=== PATIENT | male | born 1980 | race Caucasian/White ===

== ENCOUNTER → 2017-10-12 | Outpatient (CLI) | payer OTHER ==
--- NOTE | 2017-10-12 21:09 | CONS ---
CONSULTATION Consultation for sleep apnea. A 37-year-old male patient, works at the [employer]. He is morbidly obese with a BMI of 40.3. He has been having loud snoring, sleep fragmentation along with excessive tiredness and sleepiness during the day and his presentation is typical of underlying obstructive sleep apnea. He goes to bed around 8:00-10:00 p.m., gets out of bed around 4:00 am. On weekends, he sleeps at midnight and gets up in the yarder puncher hours. During the day, he feels tired and fatigued and sleepy. He has been told to stop breathing at night. He wakes up with a dry mouth. He has restlessness in the lower extremities and occasionally wakes up gasping for air. PAST MEDICAL HISTORY: Bronchial asthma, depression, acid reflux and chronic back pain. SURGICAL HISTORY: Includes tonsillectomy. DRUG ALLERGIES: Not known. He is allergic to DUST, GRASS and TREES and has CHRONIC ALLERGIC RHINITIS. OUTPATIENT MEDICATION LIST: Includes: 1. Singulair. 2. Prozac and. 3. Antacids. SOCIAL HISTORY: Does smoke 1 pack of cigarettes a day. No history of alcoholism. No history of IV drugs. FAMILY HISTORY: Positive for CVA and sleep apnea also runs in the family. REVIEW OF SYSTEMS: A 12-point review of systems was done. Constitutional shows positive weight gain, around 30-40 pounds over the past 5 years. No change in appetite. No severe chills or night sweats. No headaches. No altered mentation. No changes in memory. No cough or sputum production. No angina or palpitations. No nausea, vomiting or diarrhea. Occasional heartburn. There is occasional nocturia. No dysuria, frequency or urgency. No palpitations. No sleepwalking or sleep talking. No anxiety. Has history of depression. No claustrophobia. No sexual dysfunction. His current vitals: BP is 140/90, pulse 84, respirations 16, temperature 97.5, sats are 97% on room air. Neck size 18 inches. Weight is 281. Height is 5 feet 6 inches. GENERAL APPEARANCE: Calm comfortable. Head is atraumatic, normocephalic. Neck is short, supple. There is crowding of posterior pharynx. There is no goiter or neck masses. LUNGS: Diminished breath sounds bilaterally, otherwise clear. HEART: Sounds are regular rate and rhythm. Normal S1, S2. No S3, S4. No murmurs. ABDOMEN: Soft, nontender. No organomegaly. EXTREMITIES: No edema. No cyanosis or clubbing. NEUROLOGIC: Alert and oriented x3. No focal neurological deficits. PSYCHIATRICALLY: Positive for depression and anxiety. SKIN: Negative for wounds or ulceration. IMPRESSION: 1. Obstructive sleep apnea clinically suspected based on snoring, witnessed apneas and chronic hypersomnia and sleepiness with an [place] score of 14. 2. Obesity, BMI of 40. 3. Hypersomnia. [place] of 14. 4. Bronchial asthma. 5. Depression. 6. Acid reflux. 7. Chronic back pain. PLAN: 1. Encourage weight loss. 2. Implement good sleep hygiene measures. 3. Proceed with a polysomnogram. The patient is willing to undertake CPAP therapy if he is found to have significant obstructive sleep apnea. Will continue to follow. DESTIN / MATTN: [id number] /
== END | disposition home or self-care (01) ==
LOC: SLEEP 15:04
PROVIDERS: ATTEND Internal Medicine Critical Care Medicine
DX: E66.9 Obesity, unspecified (principal); G47.10 Hypersomnia, unspecified; J45.909 Unspecified asthma, uncomplicated; F32.9 Major depressive disorder, single episode, unspecified; K21.9 Gastro-esophageal reflux disease without esophagitis; M54.9 Dorsalgia, unspecified; G89.29 Other chronic pain; F17.210 Nicotine dependence, cigarettes, uncomplicated; Z68.41 Body mass index [BMI] 40.0-44.9, adult; Z91.09 Other allergy status, other than to drugs and biological substances; Z79.899 Other long term (current) drug therapy
CPT/HCPCS: 99211

== ENCOUNTER → 2020-12-18 | Outpatient (CLI) | payer OTHER ==
--- NOTE | 2020-12-18 22:13 | CONS ---
CONSULTATION DATE OF SERVICE: 12/18/2020 40-year-old gentleman who has been evaluated in the sleep center for possible obstructive sleep apnea-hypopnea syndrome. SLEEP SCHEDULE: The patient usual sleep schedule from 9 p.m. to 4 a.m. on weekdays and from midnight until 5 a.m. on weekends. FALLING ASLEEP: He does have problems with falling asleep, although no TV in bedroom. DURING SLEEP: He usually sleeps in the stomach position. He snores and has witnessed episodes of stopped breathing during sleep. He also wakes up with a choking, dry mouth, episodes of gasping for air, restless legs, sleep talking, sweating. The patient wakes up from sleep 3 times with nocturia. In the morning, the patient wakes up tired with difficulties paying attention, falling asleep during the day. Worry about sleep, has problem with the memory and sexual dysfunction. [place] Sleepiness Scale increased to 11. PAST MEDICAL HISTORY: Positive for hypertension, asthma, dizziness, headaches, acid reflux. PAST SURGICAL HISTORY: Tonsillectomy x2. MEDICATIONS: Glimepiride 2 mg once a day. Omeprazole 40 mg once a day. Loratadine 10 mg once a day, amlodipine 10 mg once a day. Montelukast 10 mg once a day. Losartan hydrochlorothiazide 10/25 mg once a day. Dicyclomine 20 mg once a day, Flexeril 10 mg once a day. Metformin 10 mg once a day. ProAir. SOCIAL HISTORY: Positive for smoking 1-1/2 pack a day for 27 years. Alcohol consumption occasional. FAMILY HISTORY: during the sleep, arthritis. REVIEW OF SYSTEMS: Awakenings from sleep, sleepiness during the day. PHYSICAL EXAMINATION: GENERAL: A 40-year-old gentleman without distress. BP 139/86, HR 71, RR 18, height 5 feet 10 inches, weight 292.2, temperature 97.9. Oxygen saturation at room air 92%. Oropharynx: Low position of soft palate. Body mass index 41.8. Wide neck 19 inches in circumference. NECK: Supple, no JVD. Thyroid is not palpable. LUNGS: Clear to percussion and to auscultation. Good air exchange. No wheezing or rhonchi. HEART: S1, S2 regular. No murmurs, gallops, or rubs. ABDOMEN: Obese. Soft and nontender. Bowel sounds are present. No organomegaly appreciated. EXTREMITIES: No clubbing or cyanosis. DIRECTOR OF INSTRUMENTAL MUSIC: Awake, alert, and oriented X3. Cranial nerves 2 to 7 intact. There is no fasciculation or atrophy. noted. No focal deficits observed. IMPRESSION: 1. Snoring, witnessed episodes of stopped breathing during sleep, multiple awakenings from sleep with nocturia, wide neck 19 inches in circumference, sleepiness, [place] Sleepiness Scale increased to 11, obstructive sleep apnea-hypopnea syndrome. 2. Obesity, BMI 41.8. 3. Hypertension. 4. Asthma. 5. Episodes of dizziness. 6. Headaches. 7. Acid reflux. 8. Restless leg symptoms. 9. Status post tonsillectomy. PLAN: 1. Polysomnography for evaluation of patient's breathing during sleep. 2. CPAP/BiPAP titration if sleep study confirms obstructive sleep apnea-hypopnea syndrome. 3. Preferable position during sleep on the side. 4. No driving if patient feels any sleepiness. 5. I will see patient for follow up visit to explain results of testing and following plan. Thank you very much for referring this patient for consultation. Sincerely, Isaías Ely MD, PhD, FAASM Diplomat of [employer] [facility] Isaías Ely MD, PhD, FAASM Diplomat of [place] [employer] [facility] MMODL / MATTN: [id number] /
== END ==
LOC: SLEEP 16:54
PROVIDERS: ATTEND Internal Medicine
DX: G47.33 Obstructive sleep apnea (adult) (pediatric) (principal); E66.9 Obesity, unspecified; I10 Essential (primary) hypertension; J45.909 Unspecified asthma, uncomplicated; R42 Dizziness and giddiness; R51.9 Headache, unspecified; K21.9 Gastro-esophageal reflux disease without esophagitis; F17.210 Nicotine dependence, cigarettes, uncomplicated; Z68.41 Body mass index [BMI] 40.0-44.9, adult; Z90.89 Acquired absence of other organs; Z79.84 Long term (current) use of oral hypoglycemic drugs; Z79.899 Other long term (current) drug therapy; Z53.9 Procedure and treatment not carried out, unspecified reason